=== PATIENT | male | born 1995 | race Caucasian/White ===

== ENCOUNTER 2016-08-14 15:12 | Emergency (ER) | payer OTHER ==
[~2016-08-14] VITALS: Ht 172.7 cm; Wt 90.0 kg
[2016-08-14 15:53] VITALS: Ht 172.7 cm; Wt 90.0 kg
[2016-08-14] MEDS ORDERED: BUPIVACAINE 0.5% (MPF) 10 ML VIAL INJ ONE (17:30)
[2016-08-14] MEDS ORDERED: METHYLPREDNISOLONE 40 MG INJ IV ONE ×2 (17:30)
[2016-08-14] MEDS ORDERED: AZITHROMYCIN 250 MG TAB PO ONE (17:30)
[2016-08-14] MEDS ORDERED: LIDOCAINE 1% (MDV) 20 ML INJ SC ONE (17:30)
[2016-08-14] MEDS ORDERED: CEFTRIAXONE 250 MG INJ IM ONE (17:30)
[2016-08-14 17:49] LABS: ADD UMIC YES; URINE BILIRUBIN (Dip) NEGATIVE (NEGATIVE); URINE BLOOD (Dip) 1+ (NEGATIVE); URINE COLOR LT. YELLOW (YELLOW); URINE GLUCOSE (Dip) NEGATIVE (NEGATIVE); URINE KETONES (Dip) NEGATIVE (NEGATIVE); URINE LEUKOCYTE ESTERASE (Dip) 3+ (NEGATIVE); URINE NITRITE (Dip) NEGATIVE (NEGATIVE); URINE TOTAL PROTEIN (Dip) TRACE (NEGATIVE); URINE UROBILINOGEN (Dip) 0.2 E.U./dL (0.1-1.0)
[2016-08-14 17:58] LABS: BACTERIA,URINE MANY; SQUAMOUS EPITHELIAL CELL,UR FEW
[2016-08-14] MEDS ORDERED: CIPR500T4 PO (18:36)
[2016-08-14] MEDS ORDERED: CLOT30CR24 TOP (18:38)
--- NOTE | 2016-08-14 19:38 | ERD ---
ER Documentation Chief Complaint Date/Time DATE: 08/14/16 TIME: 19:34 Chief Complaint LEFT HIP PAIN X3 DAYS, DENIES INJURY HPI 20-year-old male patient with no significant past medical history presents to the ED complaining of a rash that was noted on his penis 2 days ago. States that he last had unprotected sexual intercourse 5 days ago with his girlfriend. Reports that he has 1 sexual partner. States that he started to notice the rash with slight discharge surrounding the tip of his penis. States that he has some slight burning with urination. Denies any abdominal pain, nausea, vomiting, scrotal pain, chest pain, shortness of breath. Denies any flank pain , hematuria, urgency, frequency. ROS All systems reviewed and are negative except as per history of present illness. Medications Home Meds Active Scripts Clotrimazole* (Clotrimazole* AF) 1% - 30 Gm Cream.gm., 1 APPLIC TOP BID for 7 Days, TUB Prov:SOURAV DAVID PA-C 08/14/16 Ciprofloxacin Hcl* (Ciprofloxacin Hcl*) 500 Mg Tablet, 500 MG PO BID for 10 Days , TAB Prov:SOURAV DAVID PA-C 08/14/16 Allergies Allergies: Coded Allergies: No Known Allergy (Unverified , 08/14/16) PMhx/Soc Medical and Surgical Hx: pt denies Medical Hx, pt denies Surgical Hx History of Surgery: No Anesthesia Reaction: No Hx Neurological Disorder: No Hx Respiratory Disorders: No Hx Cardiac Disorders: No Hx Psychiatric Problems: No Hx Miscellaneous Medical Probl: No (DENIES MEDICAL AND SURGICAL HX.) Hx Alcohol Use: No Hx Substance Use: No Hx Tobacco Use: No Smoking Status: Never smoker Physical Exam Vitals Vital Signs Date Time Temp Pulse Resp B/P Pulse Ox O2 Delivery O2 Flow Rate FiO2 08/14/16 15:53 97.8 64 18 120/63 99 Physical Exam Const: Tud-lis-kgodeiitm, well-nourished. In no acute distress. Head: Atraumatic, normocephalic Eyes: Normal Conjunctiva without injection. No purulent discharge. ENT: Normal external ear, nose. Moist oropharynx without tonsillar exudates. Non -erythematous pharynx. Uvula midline. No drooling. No trismus. Neck: No cervical midline tenderness. Full range of motion. No meningismus. No cervical lymphadenopathy. No JVD. Resp: Clear to auscultation bilaterally. No wheezing, rhonchi, rales, or crackles. No accessory muscle use. No retractions. Cardio: Regular rate and rhythm. No murmurs, rubs or gallops. Abd: Soft, nontender, non distended. Normal bowel sounds. No palpable masses. No rebound tenderness. No guarding. Negative McBurney's point. Negative psoas sign. Negative obturator sign. : Uncircumcised penis. No paraphimosis. No phimosis. Slightly erythematous 1 mm papular rash surrounding the glans penis with slight discharge. No vesicles. No tenderness palpation of the scrotum. No hernias. Skin: No petechiae or rashes Back: No midline tenderness. No CVA tenderness. Ext: No cyanosis, or edema. Neur: Awake and alert. Normal gait. Normal coordination. Psych: Normal Mood and Affect Results 24 hrs Laboratory Tests Test 08/14/16 17:25 Urine Color LT. YELLOW Urine Clarity SLIGHTLY CLOUDY Urine pH 6.0 Urine Specific [place] 1.025 Urine Ketones NEGATIVE Urine Nitrite NEGATIVE Urine Bilirubin NEGATIVE Urine Urobilinogen 0.2 E.U./dL Urine Leukocyte Esterase 3+ Urine Microscopic RBC 10-25/HPF Urine Microscopic WBC >50/HPF Urine Squamous Epithelial Cells FEW Urine Bacteria MANY Urine Hemoglobin 1+ Urine Glucose NEGATIVE% Urine Total Protein TRACE Chlamydia trachomatis RNA (TMA) NOT DETECTED Chlamydia/GC Comment SEE NOTE Neisseria gonorrhoeae RNA (TMA) NOT DETECTED Current Medications Medications (Trade) Dose Ordered Sig/Brady Route PRN Reason Start Time Stop Time Status Last Admin Dose Admin Methylprednisolone Sodium Succinate (Solu-Medrol) 40 mg ONCE ONCE IV 08/14/16 17:30 08/14/16 17:31 Cancel Bupivacaine HCl (Marcaine 0.5% (Mpf Ez)) 10 ml ONCE ONCE INJ 08/14/16 17:30 08/14/16 17:31 Cancel Methylprednisolone Sodium Succinate (Solu-Medrol) 40 mg ONCE ONCE IV 08/14/16 17:30 08/14/16 17:31 Cancel Ceftriaxone Sodium (Rocephin) 250 mg ONCE ONCE IM 08/14/16 17:30 08/14/16 17:31 DC 08/14/16 17:36 Lidocaine (Xylocaine 1% (Mdv) 20 ml) 20 ml ONCE ONCE SC 08/14/16 17:30 08/14/16 17:31 DC 08/14/16 17:37 Azithromycin (Zithromax) 1,000 mg ONCE ONCE PO 08/14/16 17:30 4 17:31 DC 08/14/16 17:37 Procedures/MDM This is a 20-year-old male patient with no significant past medical history presents to the ED complaining of a penile rash after having unprotected sexual intercourse. Patient is afebrile and nontoxic-appearing. Patient has normal vital signs. Patient's rash could likely be secondary to balanitis versus a atypical herpes. Therefore a herpes culture was obtained from patient at this time. Pending results. He was instructed that the results will come back in 1 week. Patient stated that he would like to be treated prophylactically for gonorrhea and chlamydia. 250 mg IM ceftriaxone and Zithromax 1 mg order to treat patient here in the ED. A urinalysis showed 1+ leukocyte esterase with greater than 50 white blood cells. Patient will be treated with outpatient antibiotics, ciprofloxacin for 10 days. Patient will also be given clotrimazole cream for possible balanitis secondary to a fungal infection. There is low suspicion for testicular torsion, appendicitis, hernias, epididymitis, orchitis, pyelonephritis, or other emergent conditions. Dr. Messina also evaluated patient at this time, agreed with the management and discharge plan. Discharge medications: Clotrimazole, Ciprofloxacin Follow up with primary care physician in 1-2 days for further testing for HIV, hepatitis and syphilis. Instructed patient to return to the ED sooner for any worsening symptoms. Patient's questions were answered. Patient understood and agreed with discharge plan. Patient discharged stable. Departure Diagnosis: Primary Impression: Rash of genital area Additional Impression: Dysuria Condition: Stable Patient Instructions: Urinary Tract Infections in Men, If You Think You Have an STD, Balanitis, Hiv Testing, Off-Site Referral Referrals: COMMUNITY CLINICS YOU HAVE RECEIVED A MEDICAL SCREENING EXAM AND THE RESULTS INDICATE THAT YOU DO NOT HAVE A CONDITION THAT REQUIRES URGENT TREATMENT IN THE EMERGENCY DEPARTMENT. FURTHER EVALUATION AND TREATMENT OF YOUR CONDITION CAN WAIT UNTIL YOU ARE SEEN IN YOUR DOCTORS OFFICE WITHIN THE NEXT 1-2 DAYS. IT IS YOUR RESPONSIBILITY TO MAKE AN APPOINTMENT FOR FOLOW-UP CARE. IF YOU HAVE A PRIMARY DOCTOR --you should call your primary doctor and schedule an appointment IF YOU DO NOT HAVE A PRIMARY DOCTOR YOU CAN CALL OUR PHYSICIAN REFERRAL HOTLINE AT IF YOU CAN NOT AFFORD TO SEE A PHYSICIAN YOU CAN CHOSE FROM THE FOLLOWING [facility] [address] [facility] [address] [facility] [address] [facility] [address] [facility] [address] [facility]. [facility] [address] [facility]. [facility] YOU HAVE RECEIVED A MEDICAL SCREENING EXAM AND THE RESULTS INDICATE THAT YOU DO NOT HAVE A CONDITION THAT REQUIRES URGENT TREATMENT IN THE EMERGENCY DEPARTMENT. FURTHER EVALUATION AND TREATMENT OF YOUR CONDITION CAN WAIT UNTIL YOU ARE SEEN IN YOUR DOCTORS OFFICE WITHIN THE NEXT 1-2 DAYS. IT IS YOUR RESPONSIBILITY TO MAKE AN APPOINTMENT FOR FOLOW-UP CARE. IF YOU HAVE A PRIMARY DOCTOR --you should call your primary doctor and schedule and appointment IF YOU DO NOT HAVE A PRIMARY DOCTOR YOU CAN CALL OUR PHYSICIAN REFERRAL HOTLINE AT . IF YOU CAN NOT AFFORD TO SEE A PHYSICIAN YOU CAN CHOSE FROM THE FOLLOWING [facility]: [facility] [address] [place] [address] [facility] [address] [place] [address] [facility] [address] [place] [address] [facility] URGENT CARE/SPECIALTIES Additional Instructions: FOLLOW UP WITH YOUR PRIMARY CARE PHYSICIAN TOMORROW for STD testing including syphillis, HIV, hepatitis. Your results for herpes will come back around 1 week. You will get a call if it is positive. You can also follow up with medical records for the results in about 1 week. Return to this facility if you are not improving as expected. SOURAV DAVID PA-C Aug 14, 2016 19:38
== END 2016-08-14 19:00 | disposition home or self-care (01) ==
LOC: FTE 15:12
DX: R21 Rash and other nonspecific skin eruption (principal); R30.0 Dysuria
CPT/HCPCS: 81001; 87086; 87255; 87591; 96372; J0696; Z7502; Z7610; 81003